=== PATIENT | male | born 1955 | race Two or more races ===

== ENCOUNTER 2021-11-28 09:45 | Inpatient (IN) | payer OTHER ==
[~2021-11-28] VITALS: Ht 172.7 cm; Wt 119.3 kg
[2021-11-28] MEDS ORDERED: LASIX20 MG PO (11:39)
[2021-11-28] MEDS ORDERED: COZAAR100 MG PO (11:39)
[2021-11-28] MEDS ORDERED: AMLODIPINE BESY10 MG PO (11:39)
[2021-12-05] MEDS ORDERED: ULTRACET PO (11:29)
[2021-12-05] MEDS ORDERED: PROTONIX40 MG PO (11:30)
== END 2021-12-05 14:44 | disposition home or self-care (01) | DRG 330 ==
LOC: SURH 12-02 07:15 → O/R 12-02 07:15 → SURH 12-02 09:45
PROVIDERS: ADMIT Surgery; ATTEND Surgery
PROC: 07BC4ZZ Excision of Pelvis Lymphatic, Percutaneous Endoscopic Approach (ICD-10-PCS; 2021-12-02)
PROC: 3E0F7SF Introduction of Other Gas into Respiratory Tract, Via Natural or Artificial Opening (ICD-10-PCS; 2021-12-02)
PROC: 0DTF4ZZ Resection of Right Large Intestine, Percutaneous Endoscopic Approach (ICD-10-PCS; principal; 2021-12-02 10:45)
DX: D12.0 Benign neoplasm of cecum (principal); C18.5 Malignant neoplasm of splenic flexure; Z68.41 Body mass index [BMI] 40.0-44.9, adult; D12.3 Benign neoplasm of transverse colon; E66.8 Other obesity; I10 Essential (primary) hypertension

== ENCOUNTER 2021-12-18 17:46 | Emergency (ER) | payer OTHER ==
[~2021-12-18] VITALS: Ht 172.7 cm; Wt 107.0 kg
[~2021-12-18 17:46] MED LIST: AMLODIPINE BESY10 MG PO; COZAAR100 MG PO; LASIX20 MG PO; PROTONIX40 MG PO; ULTRACET PO
== END 2021-12-18 22:06 | disposition home or self-care (01) ==
LOC: ER 17:46
DX: R10.9 Unspecified abdominal pain (principal); Z20.822 Contact with and (suspected) exposure to COVID-19

== ENCOUNTER 2021-12-19 15:28 | Inpatient (IN) | payer OTHER ==
[~2021-12-19] VITALS: Ht 175.3 cm; Wt 107.0 kg
[2022-01-16] MEDS ORDERED: INTESTINEX680 M1 PO (11:09)
[2022-01-16] MEDS ORDERED: PROTONIX40 MG PO (11:09)
[2022-01-16] MEDS ORDERED: ELIQUIS5 MG PO (11:09)
[2022-01-16] MEDS ORDERED: VANCOMYCIN HCL125 MG PO (11:10)
== END 2022-01-16 11:35 | disposition home or self-care (01) | DRG 393 ==
LOC: ER 15:28 → ICU-2 18:40 → SURG 18:40 → ICU 12-20 22:16 → SURG 12-27 18:54 → SURH 01-04 12:31
PROVIDERS: ADMIT Surgery; ATTEND Surgery
PROC: 02HV33Z Insertion of Infusion Device into Superior Vena Cava, Percutaneous Approach (ICD-10-PCS; principal; 2021-12-20)
PROC: B24BYZZ Ultrasonography of Heart with Aorta using Other Contrast (ICD-10-PCS; 2021-12-20)
PROC: 5A0945A Assistance with Respiratory Ventilation, 24-96 Consecutive Hours, High Flow/Velocity Cannula (ICD-10-PCS; 2021-12-20)
PROC: 3E0336Z Introduction of Nutritional Substance into Peripheral Vein, Percutaneous Approach (ICD-10-PCS; 2021-12-23)
PROC: BW21ZZZ Computerized Tomography (CT Scan) of Abdomen and Pelvis (ICD-10-PCS; 2021-12-26)
PROC: BW2110Z Computerized Tomography (CT Scan) of Abdomen and Pelvis using Low Osmolar Contrast, Unenhanced and Enhanced (ICD-10-PCS; 2022-01-02)
DX: K55.069 Acute infarction of intestine, part and extent unspecified (principal); A41.9 Sepsis, unspecified organism; N17.8 Other acute kidney failure; E87.0 Hyperosmolality and hypernatremia; I24.8 Other forms of acute ischemic heart disease; D62 Acute posthemorrhagic anemia; C18.5 Malignant neoplasm of splenic flexure; E87.2 Acidosis; K92.1 Melena; D53.8 Other specified nutritional anemias; D12.0 Benign neoplasm of cecum; D12.3 Benign neoplasm of transverse colon; I10 Essential (primary) hypertension; E11.9 Type 2 diabetes mellitus without complications; Z90.49 Acquired absence of other specified parts of digestive tract; R00.0 Tachycardia, unspecified; Z53.1 Procedure and treatment not carried out because of patient's decision for reasons of belief and group pressure; K52.89 Other specified noninfective gastroenteritis and colitis; R53.81 Other malaise

== ENCOUNTER 2022-04-05 11:04 | Emergency (ER) | payer OTHER ==
[~2022-04-05] VITALS: Ht 172.7 cm; Wt 81.6 kg
[~2022-04-05 11:04] MED LIST changes: +ELIQUIS5 MG PO; +INTESTINEX680 M1 PO; +VANCOMYCIN HCL125 MG PO
== END 2022-04-05 22:04 | disposition home or self-care (01) ==
LOC: ER 11:04
DX: N39.0 Urinary tract infection, site not specified (principal); Z86.010 Personal history of colon polyps

== ENCOUNTER 2022-04-28 20:31 | Inpatient (IN) | payer OTHER ==
[~2022-04-28] VITALS: Ht 172.7 cm; Wt 77.1 kg
--- NOTE | 2022-04-28 21:01 | NUR ---
SE RECIBE PTE ALERTA Y ORIENTADO X3,REFIERE TENER EMESIS X5 HOY REFIERE QUE ES MAXIMILIANOE GERMAN,REFIERE QUE LO OPERARON DEL COLON,LO ATENDIO LA ,LO OPERO EL DR.JOSE VALADEZ EL 2021.
--- NOTE | 2022-04-28 23:58 | NUR ---
PTE MASCULINO ALERTA Y ORIENTADO X3 ES EVALUADO POR . SE ORIENTA SOBRE ORDENES DE [place] REFIERE COMPRENDER. SE EXTRAEN MUESTRAS DE LABORATORIOS Y SE CANALIZA VENA BAJO MEDIDAS ASEPTICAS. SE ADMINISTRAN LIQUIDOS INTRAVENOSOS, BAJO MEDIDAS ASEPTICAS. SE ENTREGA CONTRASTE ORAL Y SE ORIENTA SOBRE INGESTA. PTE MANEJADO POR DANY MCGEE.
--- NOTE | 2022-04-29 05:18 | NUR ---
SE LE ADMINISTRA MEDICAMENTOS ORDENADOS A PTE POR MS.ANGELIS MAEGAN SAENZ. SE ,MANTENIMINETO.
--- NOTE | 2022-04-29 07:34 | NUR ---
SE RECIBE PTE DEL TURNO ANTERIOR, ALERTA Y ORIENTADO EN WINIFRED KELLI ESFERAS, UBICADO EN DARLENE NIVEL MAS BAJO, BURRIS DE IDENTIFICACION Y BARANDAS ELEVADAS POR PRECAUCION. SE OBSERVA CON BUEN PATRON RESPIRATORIO. PIEL TIBIA AL TACTO RECIBIENDOO 0.9% NSS @125ML/HR. PENDIENTE RE EVALUACION MEDICA. SE MANTIENE BAJO OBSERVACION.
[2022-04-29] MEDS ORDERED: AMLODIPINE BESY10 MG (14:28)
[2022-04-29] MEDS ORDERED: FUROSEMIDE20 MG (14:28)
[2022-04-29] MEDS ORDERED: ABATINEX680 MG (14:28)
[2022-04-29] MEDS ORDERED: LOSARTAN POTAS100 MG (14:28)
[2022-04-29] MEDS ORDERED: FAMOTIDINE20 MG (14:28)
[2022-05-15] MEDS ORDERED: ULTRACET PO (10:43)
[2022-05-15] MEDS ORDERED: ELIQUIS5 MG PO (10:43)
[2022-05-15] MEDS ORDERED: ZOFRAN8 MG PO (12:06)
[2022-05-15] MEDS ORDERED: INTESTINEX680 M1 PO (12:06)
[2022-05-15] MEDS ORDERED: PROTONIX40 MG PO (12:06)
== END 2022-05-15 13:53 | disposition home or self-care (01) | DRG 329 ==
LOC: ER 20:31 → SURH 04-29 11:43
PROVIDERS: ADMIT Surgery; ATTEND Surgery
PROC: BW21YZZ Computerized Tomography (CT Scan) of Abdomen and Pelvis using Other Contrast (ICD-10-PCS; 2022-04-28)
PROC: 0D9670Z Drainage of Stomach with Drainage Device, Via Natural or Artificial Opening (ICD-10-PCS; 2022-04-29)
PROC: 02HV33Z Insertion of Infusion Device into Superior Vena Cava, Percutaneous Approach (ICD-10-PCS; 2022-04-30)
PROC: 3E0436Z Introduction of Nutritional Substance into Central Vein, Percutaneous Approach (ICD-10-PCS; 2022-04-30)
PROC: BW21YZZ Computerized Tomography (CT Scan) of Abdomen and Pelvis using Other Contrast (ICD-10-PCS; 2022-05-06)
PROC: 3E0F7SF Introduction of Other Gas into Respiratory Tract, Via Natural or Artificial Opening (ICD-10-PCS; 2022-05-08)
PROC: 0DB80ZZ Excision of Small Intestine, Open Approach (ICD-10-PCS; principal; 2022-05-08 17:45)
DX: K56.609 Unspecified intestinal obstruction, unspecified as to partial versus complete obstruction (principal); K55.021 Focal (segmental) acute infarction of small intestine; N17.8 Other acute kidney failure; I10 Essential (primary) hypertension; E86.9 Volume depletion, unspecified; Z20.822 Contact with and (suspected) exposure to COVID-19; Z53.31 Laparoscopic surgical procedure converted to open procedure; Z77.22 Contact with and (suspected) exposure to environmental tobacco smoke (acute) (chronic)